=== PATIENT | female | born 1970 | race African-American/Black ===

== ENCOUNTER 2021-07-24 04:43 | Emergency (ER) | payer SELFPAY ==
[~2021-07-24] VITALS: Ht 172.7 cm; Wt 93.2 kg
[2021-07-24 04:46] VITALS: BP 133/92
== END 2021-07-24 05:47 | disposition left against medical advice (07) ==
LOC: EMS 04:44
DX: R10.9 Unspecified abdominal pain (principal); Z53.21 Procedure and treatment not carried out due to patient leaving prior to being seen by health care provider